=== PATIENT | male | born 1985 | race Caucasian/White ===

== ENCOUNTER 2018-12-17 19:18 | Emergency (ER) | payer MEDICAID, OTHER ==
[~2018-12-17] VITALS: Ht 180.3 cm; Wt 121.3 kg
[~2018-12-17 19:18] MED LIST: SULF1TAB31 PO
[2018-12-17 19:35] VITALS: Ht 180.3 cm; Wt 121.3 kg
[2018-12-17 19:59] VITALS: BP 157/102; PULSE 77; RESP 16
[2018-12-17] MEDS ORDERED: KETOROLAC 30 MG INJ IM STA (20:57)
--- NOTE | 2018-12-17 21:20 | ERD ---
ER Documentation Chief Complaint Chief Complaint left index finger lac, requesting cleaning and referral for specialist HPI 33-year-old male, presents to the emergency department complaining of left distal phalanx pain and persistent bleeding after a laceration repaired at a [facility] in [place] at approximately 5 PM today. According to the patient, he was working and sustained an accidental self-inflicted injury with a power tool, the patient was evaluated and treated in the ER, allegedly, x-rays negative for fracture and the laceration was repaired there. Currently, he is complaining of throbbing pain and persistent bleeding. He denies distal weakness, numbness or tingling. ROS All systems reviewed and are negative except as per history of present illness. Allergies Allergies: Coded Allergies: No Known Allergy (Unverified , 12/17/18) PMhx/Soc Medical and Surgical Hx: pt denies Medical Hx, pt denies Surgical Hx Hx Alcohol Use: No Hx Substance Use: No Hx Tobacco Use: No Smoking Status: Unknown if ever smoked FmHx Family History: No diabetes, No coronary disease Physical Exam Vitals Vital Signs Date Temp Pulse Resp B/P (MAP) Pulse Ox O2 O2 Flow FiO2 Time Delivery Rate 12/17/18 98.3 77 16 157/102 100 19:59 (120) 12/17/18 98.3 85 16 186/112 100 19:35 (136) Physical Exam Const: No acute distress Head: Atraumatic Eyes: Normal Conjunctiva ENT: Normal External Ears, Nose and Mouth. Neck: Full range of motion. No meningismus. Resp: Clear to auscultation bilaterally Cardio: Regular rate and rhythm, no murmurs Abd: Soft, non tender, non distended. Normal bowel sounds Skin: No petechiae or rashes Back: No midline or flank tenderness Ext: Left index: Stitches in place, no active bleeding, significant loss of soft tissue but no gross deformity, no cyanosis, or edema Neur: Awake and alert Psych: Normal Mood and Affect Results 24 hrs Current Medications Medications Dose Sig/Susan Start Time Status Last (Trade) Ordered Route PRN Stop Time Admin Dose Reason Admin Ketorolac 30 mg ONCE STAT 12/17/18 DC 12/17/18 Tromethamine IM 20:57 21:04 (Toradol) 12/17/18 20:58 Procedures/MDM Status post laceration repair 3-hours ago. no fever, no chills. The patient was evaluated for infection and neurovascular compromise. The wound was clean and irrigated with normal saline and dressing applied. Patient is stable, with adequate healing process, okay to discharge home, medication adherence reinforced. some side effects of prescribed medications (headache, rash, nausea, vomiting, diarrhea, drowsiness, habituation, bleeding, hypertension, interactions with other medications) were reviewed. The patient was instructed to follow up with the primary care provider in the next 48h. If symptoms persist, worsen or new symptoms develop, then patient should return to the ED immediately. Instructions explained and given directly by me to the patient with acknowledgment and demonstrated understanding. Disclaimer: Inadvertent spelling and grammatical errors are likely due to EHR/dictation software use and do not reflect on the overall quality of patient care. Also, please note that the electronic time recorded on this note does not necessarily reflect the actual time of the patient encounter. Departure Diagnosis: Primary Impression: Laceration of left index finger with damage to nail Encounter type: subsequent encounter Foreign body presence: without foreign body Qualified Codes: S61.311D - Laceration without foreign body of left index finger with damage to nail, subsequent encounter Condition: Stable Patient Instructions: Crush Injury, Hand/Finger Additional Instructions: Muchas bora por [facility] para oshea servicio. Esperamos que en oshea visita a la christiano de emergencia oshea problema medico haya sido solucionado y que se sienta mucho mejor. Para estar seguros que oshea mejoria sigue en proceso, le pedimos el favor de hacer mauro eyal de seguimiento medico con oshea doctor primario en los proximos 2-4 feng. Lleve con usted estos documentos y las medicinas recetadas. Si heladio sintomas empeoran, NO SE ESPERE, por favor regrese a christiano de emergencia INMEDIATAMENTE. En kirti que usted no tenga un mdico de atencin primaria: Llame al mdico o clnica comunitaria de referencia que aparece abajo malissa las horas de consultorio para hacer mauro eyal para que le vean. CLINICAS: [facility] [phone] [facility] [phone] [facility] [phone] [facility] [phone] [facility] [phone] [address] [facility]. [phone] HÉCTOR WARD MD Dec 17, 2018 21:20
== END 2018-12-17 21:40 | disposition home or self-care (01) ==
LOC: FTE 19:18
DX: S61.311A Laceration without foreign body of left index finger with damage to nail, initial encounter (principal); X78.8XXA Intentional self-harm by other sharp object, initial encounter; Y92.9 Unspecified place or not applicable
CPT/HCPCS: 96372; J1885

== ENCOUNTER 2018-12-19 11:01 | Emergency (ER) | payer MEDICAID ==
[~2018-12-19] VITALS: Ht 170.2 cm; Wt 121.6 kg
[2018-12-19 11:04] VITALS: BP 152/81; PULSE 96; RESP 17; Ht 170.2 cm; Wt 121.6 kg
== END 2018-12-19 13:07 | disposition home or self-care (01) ==
LOC: E/R 11:01
DX: Z48.01 Encounter for change or removal of surgical wound dressing (principal)
CPT/HCPCS: 99281

== ENCOUNTER 2018-12-24 10:58 | Emergency (ER) | payer MEDICAID ==
[~2018-12-24] VITALS: Ht 157.5 cm; Wt 80.0 kg
[2018-12-24 11:05] VITALS: BP 130/78; PULSE 78; RESP 18; Ht 157.5 cm; Wt 80.0 kg
== END 2018-12-24 12:44 | disposition home or self-care (01) ==
LOC: FTE 10:58
DX: S61.211D Laceration without foreign body of left index finger without damage to nail, subsequent encounter (principal); F17.210 Nicotine dependence, cigarettes, uncomplicated; X58.XXXD Exposure to other specified factors, subsequent encounter
CPT/HCPCS: 99283